=== PATIENT | female | born 1980 | race Caucasian/White ===

== ENCOUNTER → 2017-01-27 | Outpatient (CLI) | payer BC ==
--- NOTE | 2017-01-29 10:25 | RAD ---
DATE: 01/27/2017 EXAM: MAMMO KIM SCREENING BILATERAL HISTORY: Routine screening, family history of breast cancer COMPARISON: Baseline study The breast parenchyma shows scattered fibroglandular densities. Breast parenchyma level B. FINDINGS: 2-D and 3-D tomographic imaging was performed in CC and MLO projections. No breast mass is identified. No suspicious microcalcifications are seen. IMPRESSION: There is no mammographic evidence of malignancy in either breast. Follow-up mammography is suggested at age 40 or as clinically indicated. BI-RADS CATEGORY: 1 NEGATIVE Mammography is a sensitive method for finding small breast cancers, but it does not detect them all and is not a substitute for careful clinical examination. A negative mammogram does not negate a clinically suspicious finding and should not result in delay in biopsying a clinically suspicious abnormality. "Our facility is accredited by the [employer] Mammography Program."
== END | disposition home or self-care (01) ==
LOC: KCIC MAMMO 12:48
PROVIDERS: ATTEND Obstetrics & Gynecology
DX: Z12.31 Encounter for screening mammogram for malignant neoplasm of breast (principal)
CPT/HCPCS: 77063; G0202; 77067